=== PATIENT | male | born 1985 | race Caucasian/White ===

== ENCOUNTER 2022-05-06 13:04 | Emergency (ER) | payer OTHER ==
[~2022-05-06] VITALS: Ht 182.9 cm; Wt 77.1 kg
[~2022-05-06 13:04] MED LIST: CLIN300 PO; HYDACE5 PO; NEOPOLHCSU AU
== END 2022-05-06 15:43 | disposition home or self-care (01) ==
LOC: ER 13:04
DX: Z23 Encounter for immunization (principal); S61.451A Open bite of right hand, initial encounter; W55.51XA Bitten by raccoon, initial encounter
CPT/HCPCS: 90375; 90376

== ENCOUNTER 2022-05-09 08:19 | Emergency (ER) | payer OTHER ==
[~2022-05-09] VITALS: Ht 182.9 cm; Wt 77.1 kg
== END 2022-05-09 10:21 | disposition home or self-care (01) ==
LOC: ER 08:19
DX: Z29.14 Encounter for prophylactic rabies immune globulin (principal)

== ENCOUNTER 2022-05-13 07:44 | Emergency (ER) | payer OTHER ==
[~2022-05-13] VITALS: Ht 182.9 cm; Wt 74.8 kg
== END 2022-05-13 10:04 | disposition home or self-care (01) ==
LOC: ER 07:44
DX: Z29.14 Encounter for prophylactic rabies immune globulin (principal)

== ENCOUNTER 2022-05-20 08:49 | Emergency (ER) | payer OTHER ==
[~2022-05-20] VITALS: Ht 182.9 cm; Wt 74.8 kg
== END 2022-05-20 09:21 | disposition home or self-care (01) ==
LOC: ER 08:49
DX: Z23 Encounter for immunization (principal)